=== PATIENT | male | born 1965 | race Caucasian/White ===

== ENCOUNTER 2017-01-03 04:50 | Emergency (ER) | payer OTHER ==
[~2017-01-03] VITALS: Ht 175.3 cm; Wt 97.0 kg
[2017-01-03 05:17] VITALS: Ht 175.3 cm; Wt 97.0 kg
[2017-01-03] MEDS ORDERED: ALBUTEROL 0.5% (NEB) 2.5 MG/0.5 ML AMP NEB STA (06:11)
[2017-01-03] MEDS ORDERED: IPRATROPIUM (NEB) 0.5 MG/2.5 ML AMP NEB STA (06:11)
[2017-01-03 06:36] LABS: ADD SCAN DIFF NO
[2017-01-03 06:40] LABS: BASOPHIL # 0.1 10^3/ul (0.0-0.1); EOSINOPHILS % 11.3 % (0.0-7.0); HEMATOCRIT 45.3 % (42.0-52.0); HEMOGLOBIN 15.3 g/dl (14.0-18.0); LYMPHOCYTES # 2.2 10^3/ul (0.8-2.9); LYMPHOCYTES % 24.4 % (15.0-51.0); MEAN CORPUSCULAR HEMOGLOBIN 28.1 pg (29.0-33.0); MEAN CORPUSCULAR HGB CONC 33.8 g/dl (32.0-37.0); MEAN CORPUSCULAR VOLUME 83.1 fl (82.0-101.0); MEAN PLATELET VOLUME 9.7 fl (7.4-10.4); MONOCYTE # 0.7 10^3/ul (0.3-0.9); MONOCYTES % 7.3 % (0.0-11.0); NEUTROPHIL # 5.1 10^3/ul (1.6-7.5); NEUTROPHILS % 55.8 % (39.0-77.0); PLATELET COUNT 416 10^3/UL (140-415); RED BLOOD COUNT 5.45 10^6/ul (4.70-6.10); RED CELL DISTRIBUTION WIDTH 12.7 % (11.5-14.5); WHITE BLOOD COUNT 9.2 10^3/ul (4.8-10.8)
--- NOTE | 2017-01-03 06:54 | RADRPT ---
PROCEDURE: XR Chest. CLINICAL INDICATION: Chest pain TECHNIQUE: A single AP view of the chest was obtained. COMPARISON: Chest x-ray dated 11/05/2011 FINDINGS: No focal airspace opacification, pleural effusion or pneumothorax is seen. The cardiomediastinal si lhouette is within normal limits for size. The osseous structures are unremarkable. IMPRESSION: No radiographic evidence of acute cardiopulmonary disease. RPTAT: HH .Daja Mccoy MD, MD Date Time Electronically viewed and signed by .Daja Mccoy MD, MD on 01/03/2017 06:54 .G/
[2017-01-03 07:52] LABS: ALBUMIN 4.8 g/dl (3.3-4.9); CHLORIDE 102 mmol/L (97-110)
[2017-01-03 07:53] LABS: POTASSIUM 4.6 mmol/L (3.5-5.1); SODIUM 143 mmol/L (135-144)
[2017-01-03 07:54] LABS: INR 0.91; PARTIAL THROMBOPLASTIN TIME 29.8 Sec (25.0-35.0); PROTIME 12.3 Sec (12.2-14.2)
[2017-01-03 07:55] LABS: ANION GAP 19 (8-16); BILIRUBIN,INDIRECT 0.7 mg/dl (0-1.1); BILIRUBIN,TOTAL 0.7 mg/dl (0.2-1.3); CARBON DIOXIDE 27 mmol/L (21-31); CREATININE 0.62 mg/dl (0.61-1.24)
[2017-01-03 07:56] LABS: ALANINE AMINOTRANSFERASE 36 IU/L (13-69); ALBUMIN/GLOBULIN RATIO 1.26; ALKALINE PHOSPHATASE 107 IU/L (42-121); ASPARTATE AMINO TRANSFERASE 30 IU/L (15-46); BLOOD UREA NITROGEN 13 mg/dl (7-20); CALCIUM 9.2 mg/dl (8.4-10.2); GLUCOSE 109 mg/dl (70-220); TOTAL PROTEIN 8.6 g/dl (6.1-8.1)
[2017-01-03 08:07] LABS: TROPONIN-I < 0.012 ng/ml (0.00-0.12)
[2017-01-03] MEDS ORDERED: IBUP-1542 PO (08:12)
[2017-01-03] MEDS ORDERED: ALBU8.5H3 INH (08:13)
--- NOTE | 2017-01-03 08:17 | ERD ---
ER Documentation Chief Complaint Date/Time DATE: 01/03/17 TIME: 06 Chief Complaint Chest pain and SOB HPI 51-year-old male presents to the emergency department on referral from his job for evaluation of a pleuritic left-sided chest discomfort. Patient states while working he began developing a nonspecific left-sided pleuritic sharp somatic type pain in his left flank and lower chest area. He reports a cough but no hemoptysis. The cough makes the pain worse. Patient denies any fevers chills weight loss night sweats. Patient denies any urinary symptoms or other complaints. He spoke to his boss who asked him to come to the emergency department for evaluation. Patient reports no anginal quality chest pain or shortness of breath. He has no fevers chills or other complaints. Currently he reports the pain is a 0/10. ROS All systems reviewed and are negative except as per history of present illness. Medications Home Meds Active Scripts Albuterol Sulfate* (Proair HFA*) 8.5 Gm Hfa.aer.ad, 2 PUFF INH Q4 for SHORTNESS OF BREATH, #1 INHALER Prov:SAMI RIVERA 01/03/17 Ibuprofen* (Motrin*) 600 Mg Tab, 600 MG PO Q6H Y for PAIN AND OR ELEVATED TEMP, #30 TAB Prov:SAMI RIVERA 01/03/17 Discontinued Reported Medications [None] No Conflict Check 01/12/12 Allergies Allergies: Uncoded Allergies: NONE (Allergy, Unknown, 01/03/17) PMhx/Soc Medical and Surgical Hx: pt denies Surgical Hx History of Surgery: No Anesthesia Reaction: No Hx Neurological Disorder: No Hx Respiratory Disorders: Yes (ASTHMA) Hx Cardiac Disorders: No Hx Psychiatric Problems: No Hx Miscellaneous Medical Probl: No (NO MEDICAL HX; HASNT BEEN TO A DR X 5YEARS) Hx Alcohol Use: No Hx Substance Use: No Hx Tobacco Use: No Smoking Status: Never smoker FmHx Noncontributory for chief complaint with no history of cardiac disease Physical Exam Vitals Vital Signs Date Time Temp Pulse Resp B/P Pulse Ox O2 Delivery O2 Flow Rate FiO2 01/03/17 06:35 78 22 98 21 01/03/17 05:17 97.5 80 18 156/89 94 Physical Exam GENERAL: The patient is well developed and appropriate for usual state of health in no apparent distress HEENT: Pupils equal, round, and reactive to light. EOMI. There is no scleral icterus. NECK: C-spine is soft and supple, there is no meningismus. There is no cervical lymphadenopathy. LUNGS: Occasional wheeze bilaterally with no tachypnea or retractions. HEART: Regular rate and rhythm, no murmurs, clicks, rubs or gallops. ABDOMEN: Soft, non-tender, non-distended. There are bowel sounds in all four quadrants. No rebound or guarding. EXTREMITIES: There is no peripheral cyanosis or edema. No focal swelling or erythema. NEURO: The patient moves all four extremities with 5/5 strength. Cranial nerves II - XII are intact. Normal gait. Alert and oriented SKIN: There is no apparent rash or petechiae. HEME/LYMPHATIC: There is no evidence of excessive bruising or lymphedema. PSYCHIATRIC: The patient does not appear anxious or depressed. Result Diagram: 01/03/17 0625 01/03/17 0720 Results 24 hrs Laboratory Tests Test 01/03/17 06:25 01/03/17 07:20 Basophils # 0.110^3/ul Basophils % 1.0% Eosinophils # 1.010^3/ul Eosinophils % 11.3% Hematocrit 45.3% Hemoglobin 15.3g/dl Lymphocytes # 2.210^3/ul Lymphocytes % 24.4% Mean Corpuscular Hemoglobin 28.1pg Mean Corpuscular Hemoglobin Concent 33.8g/dl Mean Corpuscular Volume 83.1fl Mean Platelet Volume 9.7fl Monocytes # 0.710^3/ul Monocytes % 7.3% Neutrophils # 5.110^3/ul Neutrophils % 55.8% Nucleated Red Blood Cells # 0.010^3/ul Nucleated Red Blood Cells % 0.0/100WBC Platelet Count 34780^3/UL Red Blood Count 5.4510^6/ul Red Cell Distribution Width 12.7% White Blood Count 9.210^3/ul Activated Partial Thromboplast Time 29.8Sec Alanine Aminotransferase (ALT/SGPT) 36IU/L Albumin 4.8g/dl Albumin/Globulin Ratio 1.26 Alkaline Phosphatase 107IU/L Anion Gap 19 Aspartate Amino Transf (AST/SGOT) 30IU/L Blood Urea Nitrogen 13mg/dl Calcium Level 9.2mg/dl Carbon Dioxide Level 27mmol/L Chloride Level 102mmol/L Creatinine 0.62mg/dl Direct Bilirubin 0.00mg/dl Globulin 3.80g/dl Glucose Level 109mg/dl INR International Normalized Ratio 0.91 Indirect Bilirubin 0.7mg/dl Potassium Level 4.6mmol/L Prothrombin Time 12.3Sec Prothrombin Time Ratio 1.0 Sodium Level 143mmol/L Total Bilirubin 0.7mg/dl Total Protein 8.6g/dl Troponin I < 0.012ng/ml Current Medications Medications (Trade) Dose Ordered Sig/[place] Route PRN Reason Start Time Stop Time Status Last Admin Dose Admin Albuterol (Proventil 0.5% (Neb)) 5 mg ONCE STAT NEB 01/03/17 06:11 01/03/17 06:15 DC 01/03/17 06:38 Ipratropium Equality (Atrovent 0.02% (Neb)) 0.5 mg ONCE STAT NEB 01/03/17 06:11 01/03/17 06:15 DC 01/03/17 06:37 Procedures/MDM Patient was taken to a room, seen and evaluated. Comfort measures were initiated. Diagnostic tests were ordered and reviewed. 3 LEAD RHYTHM STRIP: Normal sinus rhythm without ectopy EK lead EKG reviewed by myself: Normal Sinus Rhythm Normal [place] and intervals No ST elevation, depression, or T wave inversion Impression: Normal EKG RADIOLOGY: reviewed with the radiologist REEVALUATION: Patient remained comfortable and well-appearing. After a bronchodilator treatment, no significant wheezing was noted. MEDICAL DECISION MAKIN-year-old male presents to the emergency department with what appears to be noncardiac related chest discomfort. Patient's EKG is nondiagnostic for low risk, his chest x-ray shows no significant pneumonia. He has no evidence of pneumothorax which is been evaluated as well. Patient shows no evidence of active infection at this time. Patient presents with mild bronchospasm which has been resolved in the emergency department but no signs of other respiratory distress and he now appears comfortable from a respiratory standpoint. overall, patient is clinically well and seems to be appropriate for outpatient care. Departure Diagnosis: Primary Impression: Bronchitis Additional Impression: Pleurisy Condition: Stable Patient Instructions: Bronchitis With Wheezing (Adult) Referrals: SERENE HANSON MD (PCP) Additional Instructions: See your doctor for follow-up as discussed. Take a copy of your test results, if appropriate, to this follow-up visit. See your doctor or return here if your symptoms do not improve as expected. At any time, please return to the emergency department for any change or worsening in her symptoms. SAMI RIVERA Jan 03, 2017 08:17
[2017-01-03 08:40] VITALS: BP 125/68; PULSE 74; RESP 18
== END 2017-01-03 08:40 | disposition home or self-care (01) ==
LOC: E/R 04:50
DX: J40 Bronchitis, not specified as acute or chronic (principal); R09.1 Pleurisy; R06.02 Shortness of breath
CPT/HCPCS: 36415; 71010; 80053; 84484; 85025; 85610; 85730; 93005; 94664; Z7502; Z7610

== ENCOUNTER 2017-03-06 03:35 | Emergency (ER) | payer OTHER ==
[~2017-03-06] VITALS: Ht 170.2 cm; Wt 97.5 kg
[~2017-03-06 03:35] MED LIST: ALBU8.5H3 INH; IBUP-1542 PO
[2017-03-06 03:38] VITALS: Ht 170.2 cm; Wt 97.5 kg
--- NOTE | 2017-03-06 03:49 | ERD ---
ER Documentation Chief Complaint Date/Time DATE: 03/06/17 TIME: 03:44 Chief Complaint scalp laceration after hitting hid against the machine, no loc HPI 51-year-old male presents to emergency department for complaints of a scalp laceration wound after hitting a metal area of the machine while working today. Patient described the pain is sharp in 4/10 scale, worse touching the area, bleeding in that it is controlled. Patient denies any loss of consciousness, vomiting, blurred vision, altered level of consciousness, changes in balance or memory of the injury. Patient did not take any medications for pain. ROS All systems reviewed and are negative except as per history of present illness. Medications Home Meds Active Scripts Albuterol Sulfate* (Proair HFA*) 8.5 Gm Hfa.aer.ad, 2 PUFF INH Q4 for SHORTNESS OF BREATH, #1 INHALER Prov:SAMI RIVERA 01/03/17 Ibuprofen* (Motrin*) 600 Mg Tab, 600 MG PO Q6H Y for PAIN AND OR ELEVATED TEMP, #30 TAB Prov:SAMI RIVERA 01/03/17 Allergies Allergies: Uncoded Allergies: NONE (Allergy, Unknown, 01/03/17) PMhx/Soc History of Surgery: No Anesthesia Reaction: No Hx Neurological Disorder: No Hx Respiratory Disorders: Yes (ASTHMA) Hx Cardiac Disorders: No Hx Psychiatric Problems: No Hx Miscellaneous Medical Probl: No (NO MEDICAL HX; HASNT BEEN TO A DR X 5YEARS) Hx Alcohol Use: No Hx Substance Use: No Hx Tobacco Use: No FmHx Family History: No coronary disease, No diabetes, No other Physical Exam Vitals Vital Signs Date Time Temp Pulse Resp B/P Pulse Ox O2 Delivery O2 Flow Rate FiO2 03/06/17 03:38 97.8 79 20 188/90 98 Physical Exam GENERAL: The patient is well developed and appropriate for usual state of health, in no apparent distress. CHEST: Clear to auscultation bilaterally. There are no rales, wheezes or rhonchi. HEART: Regular rate and rhythm. No murmurs, clicks, rubs or gallops. No S3 or S4. ABDOMEN: Soft, nontender and nondistended. Good bowel sounds. No rebound or guarding. No gross peritonitis. No gross organomegaly or masses. No Hernandes sign or McBurney point tenderness. BACK: No midline or flank tenderness. EXTREMITIES: Equal pulses bilaterally. There is no peripheral clubbing, cyanosis or edema. No focal swelling or erythema. Full range of motion. Grossly neurovascularly intact. NEURO: Alert and oriented. Cranial nerves 2-12 intact. Motor strength in all 4 extremities with 5/5 strength. Sensation grossly intact. Normal speech and gait. Negative Romberg sign. Negative pronator drift. SKIN: 0.5 cm scalp laceration wound noted, no galea involvement noted. There is no apparent rash or petechia. The skin is warm and dry. HEMATOLOGIC AND LYMPHATIC: There is no evidence of excessive bruising or lymphedema. No gross cervical, axillary, or inguinal lymphadenopathy. Procedures/MDM Procedure Note: After obtaining informed consent, the wound was irrigated with 250 ml of normal saline and cleaned with diluted betadine. Using aseptic technique, the wound was approximated using a 1 staple. After the procedure, the wound was well approximated. Patient tolerated procedure well. Medical Decision Making: Prescription given for Tylenol for pain, Keflex for prevention of infection. Patient symptoms is likely this from the scalp laceration. There is low suspicion for neurological emergencies at this time since patients neurologic exam is normal. Patient did not have any altered level consciousness, vomiting, changes in balance or memory after incident. CT scan of the brain indicated at this time. Patient was advised of wound checked in 2 days, staple removal in 7-10 days. Patient was advised to return to emergency department for any worsening symptoms. Departure Diagnosis: Primary Impression: Scalp laceration Encounter type: initial encounter Qualified Code: S01.01XA - Scalp laceration, initial encounter Condition: Stable Patient Instructions: Laceration, Scalp Additional Instructions: Patient was advised of wound checked in 2 days, staple removal in 7-10 days. Patient was advised to return to emergency department for any worsening symptoms. ALVARO SAAVEDRA NP Mar 06, 2017 03:49
[2017-03-06] MEDS ORDERED: CEPH-443 PO (03:51)
[2017-03-06] MEDS ORDERED: ACET500C5 PO (03:51)
== END 2017-03-06 03:57 | disposition home or self-care (01) ==
LOC: FTE 03:35
DX: S01.01XA Laceration without foreign body of scalp, initial encounter (principal); J45.909 Unspecified asthma, uncomplicated; W22.8XXA Striking against or struck by other objects, initial encounter; Y92.9 Unspecified place or not applicable